=== PATIENT | female | born 1995 | race Hispanic/Latino ===

== ENCOUNTER 2017-04-29 17:10 | Emergency (ER) | payer BC | END 2017-04-29 19:00 | disposition home or self-care (01) | LOC: ERS 17:10 | DX: N61.1 Abscess of the breast and nipple (principal) | CPT/HCPCS: 10060 ==

== ENCOUNTER 2017-05-01 17:47 | Emergency (ER) | payer BC | END 2017-05-01 20:43 | disposition home or self-care (01) | LOC: ERS 17:47 | DX: N61.1 Abscess of the breast and nipple (principal) | CPT/HCPCS: 99282 ==

== ENCOUNTER 2018-06-27 10:05 | Emergency (ER) | payer BC ==
[2018-06-27] MEDS ORDERED: Dexamethasone 4 mg/ml Vial ONE (10:24)
== END 2018-06-27 10:25 | disposition home or self-care (01) ==
LOC: ERS 10:05
DX: J06.9 Acute upper respiratory infection, unspecified (principal)
CPT/HCPCS: 99283; J1100

== ENCOUNTER 2018-06-29 19:40 | Emergency (ER) | payer BC | END 2018-06-29 20:21 | disposition home or self-care (01) | LOC: ERS 19:40 | DX: J02.9 Acute pharyngitis, unspecified (principal); J06.9 Acute upper respiratory infection, unspecified | CPT/HCPCS: 87081; 87430; 99283 ==

== ENCOUNTER 2019-04-03 11:27 | Emergency (ER) | payer BC ==
[2019-04-03] MEDS ORDERED: Ibuprofen 200 MG TAB ONE (12:45)
== END 2019-04-03 13:47 | disposition home or self-care (01) ==
LOC: ERS 11:27
DX: J10.1 Influenza due to other identified influenza virus with other respiratory manifestations (principal)
CPT/HCPCS: 87804; 99283